=== PATIENT | male | born 1980 | race Caucasian/White ===

== ENCOUNTER 2018-09-06 17:34 | Emergency (ER) | payer OTHER, SELFPAY ==
[2018-09-06 17:35] VITALS: BP 141/81; PULSE 89; RESP 16; TEMP 36.7; O2SAT 96; BMI 31.6
--- NOTE | 2018-09-06 18:27 | ED.DCSUM_ITS ---
- ER Visit Summary Date of Service: 09/06/18 Chief Complaint: Stings right hand and right ankle with local reaction. History of Present Illness: The patient is a 38 M past male history of anxiety, asthma and ADHD. Patient was cutting his grass today and got stung by hornets on his right foot and ankle and right thumb. Having local reaction. No trouble breathing or swallowing. No wheezing. No lip or tongue swelling. No other complaints. Physical Examination: Young male no acute distress. Vital signs are stable and afebrile. Pulse ox 90% on room air hypoxia. HEENT exam unremarkable. No swelling of the lips or tongue. No trouble swallowing or breathing. No stridor. Neck nontender. Lungs clear to auscultation bilaterally. Heart regular rhythm no murmur. Abdomen soft nontender. Remedies moves all 4. Neurovascular intact. His right thumb he has a very minor local allergic reaction. And also on his right ankle. Otherwise the skin is remarkable. Test Results: None Emergency Department Course and Treatment: Patient is having a localized allergic reaction to hornet stings. He was offered Benadryl and Motrin which she deferred stating just take it at home. He does not need steroids. Treatment Plan: Benadryl. Motrin. Ice to area of local hornet stings. Disposition: Discharge Impression: Local allergic reaction hornet stings This note was generated with [employer] dictation software. It may contain incorrect words, spelling, and punctuation that were not noted in review of the chart prior to signing ED Disposition - Plan for ED Patient: Referrals: Arnold Ellison MD [Primary Care Provider] -
--- NOTE | 2018-09-06 18:29 | ED.DEP ---
ED Disposition - Plan for ED Patient: Disposition: Home or Assisted Living Instructions: ALLERGIC REACTION, Insect (Local) Referrals: Brodie Segura MD [NON-STAFF] - As Needed Additional Instructions: For itching and local allergic reaction. Motrin for allergic reaction and inflammation. Ice to the right hand and ankle. Follow-up if getting a lot worse. This should start getting better.
== END 2018-09-06 19:06 | disposition home or self-care (01) ==
PROVIDERS: Emergency Provider Emergency Medicine; Family Provider Family Medicine; PCP Family Medicine
DX: T63.451A Toxic effect of venom of hornets, accidental (unintentional), initial encounter (principal); Y92.9 Unspecified place or not applicable; J45.909 Unspecified asthma, uncomplicated; F41.9 Anxiety disorder, unspecified; F90.9 Attention-deficit hyperactivity disorder, unspecified type; Z79.899 Other long term (current) drug therapy
CPT/HCPCS: 99282